=== PATIENT | female | born 1955 | race Caucasian/White ===

== ENCOUNTER 2021-01-25 08:52 | Outpatient (CLI) | payer OTHER, SELFPAY ==
--- NOTE | 2021-01-25 08:57 | MM_ITS ---
WS: [email or web address] Exam: [place] [id number] Date/Time of Exam: 01/25/2021 9:03 AM Reason For Exam: SCREENING VIEWS: MLO and CC views both breasts. Comparison made with prior exam of 12/19/2017. Findings: Questionable 2 cm asymmetric density seen in the posterior mid right breast on the MLO view. No new f indings in the left breast. Scattered fibroglandular densities MM/[place] [id number] Impression: BI-RADS: 0-Incomplete: Need additional imaging evaluation FOLLOW-UP: Need Additional Imaging. Compression spot views of the right breast in the MLO projection would be indicated. This mammogram was also analyzed by the Computer Aided Detection System R2 Imag [employer].
== END 2021-01-25 08:53 | disposition home or self-care (01) ==
LOC: RADSHAW 08:53
PROVIDERS: PCP Internal Medicine; Visit Provider Internal Medicine
DX: Z12.31 Encounter for screening mammogram for malignant neoplasm of breast (principal)
CPT/HCPCS: 77067

== ENCOUNTER 2021-02-07 08:03 | Outpatient (CLI) | payer OTHER, SELFPAY ==
--- NOTE | 2021-02-07 08:09 | MM_ITS ---
WS: [email or web address] Exam: [place] [id number] Date/Time of Exam: 02/07/2021 8:19 AM Reason For Exam: INCONCLUSIVE MAMMO/ASYMMETRIC DENSITY VIEWS: Compression spot images of the right breast are obtained in the MLO and CC views. Also a strai ght 90 degree lateral view the right breast was included in the series. Comparison made with prior exam of most recent screening mammogram 01/25/2021.. Findings: Asymmetric density in the posterior right breast seen on the MLO view is again noted on the compressi on spot MLO view. No architectural distortion or suspicious calcification. Scattered fibroglandular densities noted. Regional ultrasound of this area is recommended for further workup. MM/[place] [id number] Impression: BI-RADS: 0-Incomplete: Need additional imaging evaluation FOLLOW-UP: See Report This mammogram was also analyzed by the Computer Aided Detection System R2 Imag e [place].
--- NOTE | 2021-02-07 08:09 | US_ITS ---
WS: [email or web address] Exam: US breast RT limited* [id number] Date/Time of Exam: 02/07/2021 8:35 AM Reason For Exam: ASYMMETRIC DENSITY Regional ultrasound the right breast is performed from the 10:00 to the 8:00 position. There was no sign of suspicious solid mass or nodule. No cysts were identified. Recommendations: Continue yearly screening mammography. US/US breast RT limited* [id number] IMPRESSION: 1. No suspicious solid mass or nodule identified with ultrasound from the 10:00 to the 8:00 position in the right breast. BI-RADS Category 2.
== END 2021-02-07 08:04 | disposition home or self-care (01) ==
PROVIDERS: PCP Internal Medicine; Visit Provider Internal Medicine
DX: R92.2 Inconclusive mammogram (principal)
CPT/HCPCS: 76642; 77065

== ENCOUNTER 2022-03-20 10:20 | Outpatient (CLI) | payer OTHER, SELFPAY ==
--- NOTE | 2022-03-20 10:40 | MR_ITS ---
WS: [id number] MRI LUMBAR SPINE NONCONTRAST TECHNIQUE: Sagittal T1, T2 and STIR imaging. Axial T1 and T2 imaging. CLINICAL INFORMATION: RIGHT LEG WEAKNESS COMPARISON: None. FINDINGS: Mild lumbar curve. No acute compression. No high-grade central canal stenosis. 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 Mild central canal stenosis in the cervical spine [employer] imaging at C3-C5. L1-L2: Mild facet arthropathy. Spinal canal and foramen are patent. L2-L3: Mild annular bulging. Slight narrowing of the LEFT subarticular recess. Mild facet arthropathy . Spinal canal and foramen are patent. Mild facet arthropathy. L3-L4: Mild annular bulging with impingement subarticular recess LEFT greater than RIGHT. Mild facet arthropathy. Mild central canal stenosis. Tiny LEFT foraminal protrusion with mild LEFT foraminal jorge rowing. L4-L5: Mild annular bulging with slight effacement of ventral thecal sac. Impingement traversing L5 n erve roots bilaterally. Moderate facet arthropathy. Foramen are patent. L5-S1: Mild annular bulging with slight effacement of the ventral thecal sac. Tiny RIGHT pericentral protrusion impinges the traversing RIGHT S1 nerve root. Impingement traversing RIGHT S1 nerve root. M ild to moderate facet arthropathy. Foramen are patent. Bilateral renal cysts largest in the RIGHT measuring 2.2 x 1.6 cm. Visualized pelvic bony structures: Normal. Paravertebral soft tissues: Normal. MR/MR lumbar spine wo con* [id number] IMPRESSION: 1. Mild lumbar curve. No acute compression. No high-grade central canal stenos is. 2. Tiny RIGHT pericentral protrusion L5-S1 impinges the traversing RIGHT S1 ne rve root in the subarticular recess. Correlation for RIGHT S1 nerve root sympto ms. 3. Mild central canal stenosis L3-L4 impinges the traversing LEFT greater than RIGHT L4 nerve roots. 4. Annular bulging L4-L5 slightly impinges the traversing L5 nerve roots bilat erally. 5. Mild narrowing LEFT L2-L3 subarticular recess. 6. Tiny LEFT foraminal protrusion L3-L4 with mild LEFT foraminal narrowing 7. Mild facet arthropathy L3-L5. 8. Mild central canal stenosis in the cervical spine [employer] imaging at C3-C5. .
== END 2022-03-20 10:21 | disposition home or self-care (01) ==
LOC: RAD 10:22
PROVIDERS: PCP Internal Medicine; Visit Provider Internal Medicine
DX: R29.898 Other symptoms and signs involving the musculoskeletal system (principal)
CPT/HCPCS: 72148

== ENCOUNTER 2022-03-29 08:32 | Outpatient (RCR) | payer OTHER, SELFPAY | END 2022-04-17 23:59 | disposition home or self-care (01) | LOC: SPT 08:32 | PROVIDERS: PCP Internal Medicine; Visit Provider Registered Nurse | DX: M54.16 Radiculopathy, lumbar region (principal); M51.26 Other intervertebral disc displacement, lumbar region | CPT/HCPCS: 97161 ==

== ENCOUNTER 2022-04-18 06:00 | Outpatient (RCR) | payer OTHER, SELFPAY | END 2022-05-18 23:59 | disposition home or self-care (01) | LOC: SPT 06:00 | PROVIDERS: PCP Internal Medicine; Visit Provider Registered Nurse | DX: M54.16 Radiculopathy, lumbar region (principal); M51.26 Other intervertebral disc displacement, lumbar region | CPT/HCPCS: 97110 ==

== ENCOUNTER → 2023-08-06 08:51 | Outpatient (CLI) | payer OTHER, MEDICARE, SELFPAY ==
--- NOTE | 2023-08-06 09:01 | MM_ITS ---
WS: [id number] BILATERAL 3D TOMOSYNTHESIS DIGITAL SCREENING MAMMOGRAPHY WITH CAD CLINICAL INFORMATION: SCREENING HISTORY: Screening mammogram. No current complaints. COMPARISON: 2020 TECHNIQUE: Bilateral CC and MLO views. FINDINGS: The breasts are composed of heterogeneous fibroglandular density tissue, which can limit the detectio n of small underlying mass lesions. Small slightly spiculated 4 mm asymmetric density upper outer RIG HT breast posterior depth appears new from previous. Recommend RIGHT breast diagnostic mammography an d ultrasound in further evaluation. LEFT breast is unremarkable and unchanged.A few incidental punctate calcifications. MM/[place] [id number] IMPRESSION: BI-RADS: 0-Incomplete: Need additional imaging evaluation FOLLOW UP: Need Additional Imaging Recommend RIGHT breast diagnostic mammography and ultrasound in further evaluat ion.
== END | disposition home or self-care (01) ==
LOC: RAD 08:52
PROVIDERS: PCP Internal Medicine; Visit Provider Internal Medicine
DX: Z12.31 Encounter for screening mammogram for malignant neoplasm of breast (principal); R92.323 Mammographic fibroglandular density, bilateral breasts; R92.333 Mammographic heterogeneous density, bilateral breasts; R92.1 Mammographic calcification found on diagnostic imaging of breast; N64.89 Other specified disorders of breast
CPT/HCPCS: 77063; 77067

== ENCOUNTER 2023-10-03 09:37 | Outpatient (CLI) | payer OTHER, SELFPAY ==
--- NOTE | 2023-10-03 09:43 | MM_ITS ---
WS: [id number] RIGHT 3D TOMOSYNTHESIS DIGITAL MAMMOGRAPHY WITH CAD CLINICAL INFORMATION: ABNORMAL MAMMOGRAM HISTORY: Additional views COMPARISON: 2023 TECHNIQUE: 3 views of the right breast were obtained. FINDINGS: The right breast is composed of heterogeneous fibroglandular density tissue, which can limit the dete ction of small underlying mass lesions. Previously described small spiculated 4 mm asymmetric density upper outer RIGHT breast compresses out study on the spot compression views. No other suspicious abn ormalities. Recommend return to annual screen mammography. MM/[place] [id number] IMPRESSION: BI-RADS: 2-Benign FOLLOW UP: 1 Year Follow-up Recommend return to annual screening mammography.
== END 2023-10-03 09:38 | disposition home or self-care (01) ==
LOC: RAD 09:39
PROVIDERS: PCP Internal Medicine; Visit Provider Internal Medicine
DX: Z12.31 Encounter for screening mammogram for malignant neoplasm of breast (principal); R92.8 Other abnormal and inconclusive findings on diagnostic imaging of breast
CPT/HCPCS: 77061; G0279